=== PATIENT | female | born 1985 | race Caucasian/White ===

== ENCOUNTER 2024-11-14 23:13 | Emergency (ER) | payer OTHER, SELFPAY ==
[2024-11-14 23:18] VITALS: BP 135/80; PULSE 109; RESP 18; TEMP 37.1; O2SAT 97; BMI 48.5
--- NOTE | 2024-11-15 00:16 | ED_ITS ---
HPI - General Adult General Chief complaint: General Medical Stated complaint: pain right side of face Time Seen by Provider: 11/15/24 00:16 Source: patient Mode of arrival: ambulatory Limitations: no limitations History of Present Illness ED Provider: HPI narrative: Patient with cold symptoms for last 1 week now complaining of pain right maxillary sinus area for last 1 week with purulent nasal no fever no chills no shortness a breath no cough Related Data Previous Rx's ?Medication ?Instructions ?Recorded amoxicillin 875 mg-potassium 1 tab PO BID #20 tabs 11/15/24 clavulanate 125 mg tablet ibuprofen 600 mg tablet 600 mg PO Q6H PRN fever or pain 11/15/24 #30 tabs Allergies Allergy/AdvReac Type Severity Reaction Status Date / Time No Known Allergies Allergy Unverified 11/14/24 23:20 Review of Systems Review of Systems: Yes all other systems are reviewed and are negative PMFSH Social History Social History Advance Directives: No Physical Exam ED Vital Signs: Vital Signs - 24 hr 11/14/24 23:18 11/15/24 00:32 Temperature 98.7 F 98.7 F Pulse Rate 109 H 109 H Respiratory Rate 18 18 Blood Pressure 135/80 135/80 Pulse Oximetry 97 97 Oxygen Delivery Method Room Air Room Air BMI result Body Mass Index 48.5 Appearance: Alert. Oriented X3. No acute distress. Eyes: No pallor or icterus ENT: Pharynx normal. Oral Mucosa moist intact tympanic membrane right maxillary sinus tenderness purulent nasal discharge Neck: Normal inspection. Neck supple. CVS: Normal heart rate and rhythm. Pulses normal. Respiratory: No respiratory distress. Equal air entry bilateral, no wheezing/rales/rhonchi Abdomen: Soft and nontender. Bowel sounds are present, Skin: Skin warm and dry. Normal skin color. Normal skin turgor. Extremities: No lower extremity edema. No calf tenderness Neuro: Oriented X 3. No motor deficit. Medications Administered Discontinued Medications Generic Name Dose Route Start Last Admin Trade Name Freq PRN Reason Stop Dose Admin Amoxicillin/Clavulanate Potassium 875 mg 11/15/24 00:17 11/15/24 00:28 Amoxicillin/Potassium Clav 875 Mg Tablet PO 11/15/24 00:18 875 mg ONCE ONE Administration Oxycodone HCl 10 mg 11/15/24 00:17 11/15/24 00:29 Oxycodone Hcl Immed Release 5 Mg Tablet PO 11/15/24 00:18 Not Given ONCE ONE Medical Decision Making Medical Decision Making [facility] Narrative: Patient with right maxillary sinusitis will discharge patient home on Augmentin Discharge Plan Discharge Clinical Impression: Sinusitis Patient Disposition: Home, Self-Care Instructions: Sinusitis (ED) Additional Instructions: Take antibiotics as prescribed Ibuprofen for pain Humidified air Follow with your PCP if not better Prescriptions: New ibuprofen 600 mg tablet 600 mg PO Q6H PRN (Reason: fever or pain) Qty: 30 0RF amoxicillin-pot clavulanate 875-125 mg tablet 1 tab PO BID Qty: 20 0RF Interventions: ED Discharge Assessment Last Done: 11/15/24 00:32 Discharge Date/Time: 11/15/24 00:33 Print Language: Slovak
[2024-11-15] MEDS: Amoxicillin/Potassium Clav 875 MG TABLET PO (00:28)
[2024-11-15 00:32] VITALS: BP 135/80; PULSE 109; RESP 18; TEMP 37.1; O2SAT 97
== END 2024-11-15 00:33 | disposition home or self-care (01) ==
PROVIDERS: Emergency Provider Internal Medicine
DX: J32.0 Chronic maxillary sinusitis (principal); R51.9 Headache, unspecified
CPT/HCPCS: 99282; 99283

== ENCOUNTER 2025-07-13 13:27 | Outpatient (AMB) | payer OTHER, SELFPAY ==
[2025-07-13 13:29] VITALS: BP 114/92; PULSE 92; TEMP 36.3; O2SAT 98; BMI 48.5
--- NOTE | 2025-07-13 13:29 | A.OFFPC_ITS ---
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 Required: No Accompanied by: Self / Same As Patient Allergies No Known Allergies Allergy (Verified 07/13/25 13:50) Medication List - Last Reconciled 07/13/25 by Melanie Dasilva PA-C clonazepam 1 mg PO BID PRN sertraline 50 mg PO DAILY Tobacco use date assessed: 07/13/25 Dental Screening Dental Screen Date: 07/13/25 Did you have a dental visit in the last 12 months?: Yes Did you have a dental problem in the last 6 months where you did not have access to dental care?: No Was dental information given to patient?: Patient has dentist HPI Upfitter Establish care 2 HPI0 Details 39-year-old female coming to the office for the 1st time. Presenting for a wellness visit and management of chronic conditions. Currently managed with sertraline and clonazepam, prescribed by a psychiatrist. The patient finds the treatment beneficial and uses clonazepam daily and as needed. The patient smokes cigarettes and has attempted cessation by reducing intake independently. She has not used pharmacological aids due to concerns about side effects. Mild childhood asthma, primarily exercise-induced, with no recent exacerbations. A back mass was identified, initially thought to be a lipoma. A surgical referral was made but not pursued due to the pandemic. Possible sleep apnea symptoms include nighttime gasping and headaches, prompting a sleep study recommendation. Migraine headache Occur a couple of times weekly, sometimes with visual disturbances. Sumatriptan prescribed for acute episodes. She currently follows with [facility]. [facility] Surgical History H/O section Hx of cholecystectomy S/P tonsillectomy Family History Maternal Grandmother Breast cancer Other Borderline high blood pressure Diabetes Thyroid disease Social History Household Members: Children Both parents involved: Yes Caregiver staying overnight: No Housing: Apartment Are you a primary personal care worker to a significant other at home: No Do you presently have visiting nurse or other home services: No Alcohol intake: never Patient Tobacco Use Status: Current everyday Tobacco user Tobacco use type: Cigarette Cigarette Packs Per Day: 1 Cigarettes Per Day: 10 Years Smoked: 22 e-Cigarette/Vaping Use: Never Used service: No Current occupational status: unemployed Hearing needs: No Vision needs: No Female Reproductive History Menstrual Total pregnancies: 1 Questionnaire PHQ-9 Over the last 2 weeks, how often have you been bothered by any of the following problems? 1. Little interest or pleasure in doing things: not at all 2. Feeling down, depressed, or hopeless: not at all 3. Trouble falling or staying asleep, or sleeping too much: several days 4. Feeling tired or having little energy: several days 5. Poor appetite or overeating: not at all 6. Feeling bad about yourself - or that you are a failure or have let yourself or your family down: not at all 7. Trouble concentrating on things, such as reading the newspaper or watching television: not at all 8. Moving or speaking so slowly that other people could have noticed. Or the opposite - being so fidgety or restless that you have been moving around a lot more than usual: not at all 9. Thoughts that you would be better off or of hurting yourself in some way: not at all Total score: 2 Depression Screening Interpretation: Positive Depression Screening Follow-up: Existing condition and In treatment Depression Screening Done: Yes 02794 - PHQ-9 Billing: Yes Source: Developed by Drs. Adam Song, Mayda Kaur, Abhishek Werner and colleagues, with an educational abigail from [employer]. Thrive Questionnaire Date Thrive assessed: 07/13/25 I am a: Patient What is your living situation today?: I have a steady place to live Within the past 12 months, did the food you bought not last and you didn't have the money to get more?: Never true Within the past 12 months, did you worry whether your food would run out before you got money to buy more?: Never true Do you have trouble paying for medicines?: No Do you have trouble getting transportation to medical appointments?: No Do you have trouble paying your heating and electricity bill?: No Do you have trouble taking care of your child, family member or friend?: No Do you have trouble with day-to-day activities such as bathing, preparing meals, shopping, managing finances, etc.?: No Are you currently unemployed and looking for a job?: No Are you interested in more education?: No Please select the resources that you would like help with: None Currently or been in a relationship where the following occur: No concerns reported THRIVE Score: 0 AUDIT C Alcohol Use Questionnaire (AUDIT-C) 1. How often do you have a drink containing alcohol?: Monthly or less 2. How many drinks containing alcohol do you have on a typical day when you are drinking?: 1 or 2 3. How often do you have six or more drinks on one occasion?: Never Total Score: 1 Score Reviewed/Action Taken: Yes PAULINA-7 AMB Questionnaire PAULINA-7 Date PAULINA - 7 assessed: 07/13/25 Feeling nervous, anxious, or on edge: 1 = Several days Not being able to stop or control worryin = Not at all Worrying too much about different things: 1 = Several days Trouble relaxin = Several days Being so restless that it is hard to sit still: 0 = Not at all Becoming easily annoyed or irritable: 0 = Not at all Feeling afraid as if something awful might happen: 1 = Several days Total PAULINA-7 score (0-4 normal; 5-9 mild; 10-14 moderate; 15-21 severe): 4 Source: Developed by Drs. Adam Song, Mayda Kaur, Abhishek Werner and colleagues, with an educational abigail from [employer]. PAULINA-7 Assessment Billing PAULINA-7 Assessment Tool: PAULINA-7 Assessment 94105 Review of Systems Const Denies body aches, Denies chills, Denies fever(s), Reports headache(s) and Denies poor appetite Eyes Reports no additional complaints and Reports requires corrective lenses ENT Denies dysphagia, Denies dizziness, Reports headache(s) and Denies odynophagia Card Denies chest pain, Denies edema, Denies lightheadedness and Denies dyspnea Resp Denies cough and Denies dyspnea GI Denies abdominal pain, Denies dysphagia, Denies nausea, Denies odynophagia and Denies vomiting Reports no additional complaints Musc Reports no additional complaints and Denies abnormal gait Skin/Breast Reports system reviewed and no additional complaints, except as documented Neuro Denies abnormal gait, Denies dizziness and Reports headache(s) Psych Reports no additional complaints Physical exam (Primary Care) Vital Signs: Last Vital Signs Temp 97.3 F 07/13/25 13:29 Pulse 92 07/13/25 13:29 BP 134/86 07/13/25 14:02 Pulse Ox 98 07/13/25 13:29 BMI result Body Mass Index 48.5 BMI Assessment/Plan discussion: High BMI High, discussed plan: lifestyle, dietary and physical activity Tobacco/Smoking Status: Tobacco use Status Tobacco use date assessed 07/13/25 07/13/25 13:37 Patient Tobacco Use Status Current everyday Tobacco 07/13/25 13:38 Tobacco use type Cigarette 07/13/25 13:37 e-Cigarette/Vaping Use Never Used 07/13/25 13:37 Are you ready to quit: Yes Tobacco cessation counseling provided: Yes Items discussed: Nicotine replacement Relapse Prevention: weight gain after smoking is common and discussed dietary, exercise and/or lifestyle changes CPT code: Less than 3 minutes PHQ-9: PHQ-9 Score PHQ-9: Total score 2 07/13/25 17:06 Depression Screening Interpretation: Positive Depression Screening Follow-up: Existing condition and In treatment Thrive Assessment: Date of Thrive Assessment Date Thrive assessed 07/13/25 07/13/25 13:40 Currently or been in a relationship where the following occur: No concerns reported Const General: cooperative, healthy appearing, comfortable and no acute distress Orientation/consciousness: patient oriented x3 [facility] Head: Yes normocephalic Ears: hearing grossly normal bilaterally General nose exam: Normal external nose present Eyes General: appearance normal, both eyes and all related structures Conjunctivae: conjunctivae normal Neck Neck: Yes full ROM and Yes no lymphadenopathy Resp Effort & Inspection: normal respiratory effort Auscultation: clear to auscultation bilaterally, no crackles, no rales, no rhonchi and no wheezes Cardio Rate: regular rate Rhythm: regular rhythm Back/Spine/Pelvis Back/spine/pelvis image: 2 1. non tender soft tissue mass with smooth edges Skin General skin exam: no rashes or lesions noted Neuro General: patient oriented x3 Gait exam (Neuro): Normal gait present Extrem General: Yes normal to inspection, Yes full ROM and No edema Psych Affect: normal affect Attitude: cooperative Insight: Good insight present (Psych) Judgement: Good judgement present (Psych) Coding Level of Care Code Est Pt Level 4 (14526) Diagnoses Anxiety F41.9 Tobacco use Z72.0 Lipoma D17.9 Hypersomnolence G47.10 Migraine G43.909 Additional Codes PAULINA-7 Assessment Billing - PAULINA-7 Assessment Tool: PAULINA-7 Assessment 58841 ([id number]) PHQ-9 - 65139 - PHQ-9 Billing: Yes ([id number]) Assessment & Plan Assessment & Plan (1) Anxiety: Comment: [facility] counseling and medication management Code(s): F41.9 - Anxiety disorder, unspecified Category: Medical Plan: Patient is currently following with [facility] and finds her medications beneficial (2) Tobacco use: Code(s): Z72.0 - Tobacco use Category: Social Hx Plan: Smoking cigarettes and the use of tobacco can be harmful. We discussed the importance of stopping and options to aid in smoking cessation. Plan to trial nicotine gum as needed (3) Lipoma: Code(s): D17.9 - Benign lipomatous neoplasm, unspecified Category: Medical Plan: For lipoma a referral to General surgery is made today. (4) Hypersomnolence: Code(s): G47.10 - Hypersomnia, unspecified Category: Medical Plan: For hypersomnolence and nighttime shortness of breath plan to obtain home sleep study for further evaluation. (5) Migraine: Code(s): G43.909 - Migraine, unspecified, not intractable, without status migrainosus Category: Medical Plan: For migraine headaches plan to trial sumatriptan to be used as needed. Plan During the visit, we discussed the management of anxiety with current medications, including sertraline and clonazepam. We explored smoking cessation options, focusing on nicotine replacement therapies with minimal side effects. The patient was informed about the importance of managing hypertension through lifestyle changes, such as smoking cessation and weight management. We also addressed the suspected sleep apnea and recommended a home sleep study. For migraine management, sumatriptan was prescribed to be used at the onset of symptoms. Preventative care measures, including mammogram and pap smear screenings, were discussed, with referrals planned for further evaluation. This note was constructed using voice recognition software. While every effort has been made to ensure accuracy and certified orthotist practice manager, still areas may have been included sometimes these areas may affect the content or meeting of the given symptoms. Total time spent caring for the patient today was 30 minutes. This includes time spent before the visit reviewing the chart, time spent during the visit, and time spent after the visit and documentation. Patient was informed and verbally consented to the use of an ambient scribe for clinic note documentation during this visit. Orders: Orders 2 RT home sleep study 07/13/25 G43.909 - Migraine, unspecified, not intractable, without status migrainosus, G47.10 - Hypersomnia, unspecified Complete Blood Count Auto Diff 07/13/25 G43.909 - Migraine, unspecified, not intractable, without status migrainosus, Z00.00 - Encounter for general adult medical examination without abnormal findings Comprehensive Met. Panel 07/13/25 G43.909 - Migraine, unspecified, not intractable, without status migrainosus, Z00.00 - Encounter for general adult medical examination without abnormal findings Vitamin D 25-OH Total 07/13/25 G43.909 - Migraine, unspecified, not intractable, without status migrainosus, Z13.21 - Encounter for screening for nutritional disorder TSH reflex Free T4 07/13/25 G43.909 - Migraine, unspecified, not intractable, without status migrainosus, Z13.29 - Encounter for screening for other suspected endocrine disorder Vitamin B12 and Folate 07/13/25 G43.909 - Migraine, unspecified, not intractable, without status migrainosus, Z13.21 - Encounter for screening for nutritional disorder Lipid Panel 07/13/25 Z13.220 - Encounter for screening for lipoid disorders Referrals 2 MICRO LAB ANALYST Referral Z12.4 - Encounter for screening for malignant neoplasm of cervix General Surgery Referral D17.9 - Benign lipomatous neoplasm, unspecified Medications: New 2 sumatriptan succinate take 1 tab at onset of headache; if no relief may repeat 1 tab after at least 2 hrs; max = 4 tabs/24 hr PO 30 tabs 0RF nicotine (polacrilex) 2 mg buccal Q2H 40 ea 0RF Discontinued 2 amoxicillin-pot clavulanate 875-125 mg Discontinued Reason: Patient no longer taking 1 tab PO BID 20 tabs 0RF ibuprofen Discontinued Reason: Patient no longer taking 600 mg PO Q6H PRN 30 tabs 0RF fever or pain
[2025-07-13 14:02] VITALS: BP 134/86
== END 2025-07-13 14:11 | disposition home or self-care (01) ==
LOC: HO.HMCH 13:27
DX: F41.9 Anxiety disorder, unspecified (principal); Z72.0 Tobacco use; D17.9 Benign lipomatous neoplasm, unspecified; G47.10 Hypersomnia, unspecified; G43.909 Migraine, unspecified, not intractable, without status migrainosus

== ENCOUNTER → 2025-07-13 13:27 | Outpatient (BNVA) | payer OTHER, SELFPAY | DX: G43.909 Migraine, unspecified, not intractable, without status migrainosus (principal); F17.210 Nicotine dependence, cigarettes, uncomplicated; F41.9 Anxiety disorder, unspecified; D17.9 Benign lipomatous neoplasm, unspecified; G47.10 Hypersomnia, unspecified | CPT/HCPCS: 96127; 99212 ==

== ENCOUNTER 2025-08-20 11:22 | Outpatient (AMB) | payer OTHER, SELFPAY ==
--- NOTE | 2025-08-20 11:23 | A.OFFVIS_ITS ---
Vital Signs 3 08/20/25 11:33 Height 5 ft 3 in Weight 275 lb BMI 48.7 BP 166/82 H Blood Pressure Location Lt brachial Position Sitting Pulse 74 Intake Visit Reasons: lipoma on back Intake Note: Patient is seen in office for evaluation of a lipoma of the back. Pt c/o: onset 3 yrs, denies increase/decrease, discharge, redness or swelling, no prior once in the past Skin Specialist Required: No Accompanied by: Family/Other Allergies No Known Allergies Allergy (Verified 08/20/25 11:32) Medication List - Last Reconciled 08/20/25 by Kenneth Dykes MD clonazepam 1 mg PO BID PRN nicotine (polacrilex) 2 mg buccal Q2H sertraline 50 mg PO DAILY sumatriptan succinate take 1 tab at onset of headache; if no relief may repeat 1 tab after at least 2 hrs; max = 4 tabs/24 hr PO HPI Comments Details: 40-year-old female patient presenting for evaluation of a soft tissue mass located in the midback. She reports 1st noted the lump approximately 3 years ago when her boyfriend was giving her a massage. She does not normally feel any pain associated with the lesion however when the lesion is palpated she does note some discomfort. She denies a history of trauma or surgery in this location. Lump has not changed significantly in size since 1st being noted. She reports an ultrasound of the lesion which was felt to be most likely a lipoma. She presents today to discuss possible removal of this lesion. [facility] Surgical History H/O section Hx of cholecystectomy S/P tonsillectomy Family History Maternal Grandmother Breast cancer Other Borderline high blood pressure Diabetes Thyroid disease Social History Household Members: Children Both parents involved: Yes Caregiver staying overnight: No Housing: Apartment Are you a primary healthcare translator to a significant other at home: No Do you presently have visiting nurse or other home services: No Alcohol intake: never Patient Tobacco Use Status: Current everyday Tobacco user Tobacco use type: Cigarette Cigarette Packs Per Day: 1 Cigarettes Per Day: 10 Years Smoked: 22 e-Cigarette/Vaping Use: Never Used service: No Current occupational status: unemployed Hearing needs: No Vision needs: No Review of Systems Const All systems reviewed & are unremarkable except as noted in HPI and below Physical Exam Vital Signs: Last Vital Signs Pulse 74 08/20/25 11:33 BP 166/82 H 08/20/25 11:33 BMI result Body Mass Index 48.7 Const General: cooperative and no acute distress Nutritional Appearance: well nourished Orientation/consciousness: patient oriented x3 Limitations: no limitations HEENT Head: Yes normocephalic and Yes atraumatic Ears: hearing grossly normal bilaterally Resp Effort & Inspection: normal respiratory effort, no audible wheezes, no cough and no respiratory distress GI Inspection: Yes normal to inspection Back/Spine/Pelvis Other: 5 cm soft tissue mass located to the left of midline at approximately the bra line, mobile within the subcutaneous tissue and most consistent with a lipoma. No overlying skin changes are appreciated. Back/spine/pelvis image: 2 1. 5 cm soft tissue mass consistent with a lipoma to the left of midline upper midback Skin Other: Warm, dry, no rash Neuro General: patient oriented x3 Extrem General: Yes no clubbing, cyanosis or edema Assessment & Plan Assessment & Plan (1) Lipoma: Code(s): D17.9 - Benign lipomatous neoplasm, unspecified Category: Medical Plan 40-year-old female patient presenting with a soft tissue mass of the left back which has been present for a least 3 years without any significant change. I reviewed the procedure to remove the palpable lump and after discussion of the procedure, risks and alternatives, she decided to hold off on any surgery. She is welcome to call should she decide to have the lipoma removed. Coding Level of Care Code New Pt Level 4 (35281) Diagnoses Lipoma D17.9
[2025-08-20 11:33] VITALS: BP 166/82; PULSE 74; BMI 48.7
== END 2025-08-20 11:50 | disposition home or self-care (01) ==
LOC: HO.HGS 11:23
PROVIDERS: Visit Provider Surgery
DX: D17.9 Benign lipomatous neoplasm, unspecified (principal)
CPT/HCPCS: 99204

== ENCOUNTER → 2025-08-20 11:22 | Outpatient (BNVA) | payer OTHER, SELFPAY | PROVIDERS: Visit Provider Surgery | DX: D17.9 Benign lipomatous neoplasm, unspecified (principal) | CPT/HCPCS: 99202 ==

== ENCOUNTER 2025-10-01 07:40 | Outpatient (REF) | payer OTHER, SELFPAY ==
[2025-10-01 10:15] LABS: MANUAL DIFF FLAG NO
[2025-10-01 10:31] LABS: Hematocrit 42.3 % (37.0-47.0); Hemoglobin 14.2 g/dl (12.0-16.0); Imm Gran Abs Auto 0.02 X10*3/uL (0.00-0.03); Imm Gran Pct Auto 0.3 % (0.0-0.4); Lymphocytes Absolute Auto 1.8 X10*3/uL (1.2-4.9); Mean Corpuscular HGB Conc 33.6 g/dl (31.0-35.0); Mean Corpuscular Hemoglobin 32.1 pg (27.0-33.0); Mean Corpuscular Volume 95.5 fL (80.0-98.0); NRBC Abs Auto 0.000 X10*3/uL (0.0-0.012); NRBC Pct Auto 0.0 /100WBC (0.0-0.2); Platelet Count 185 X10*3/uL (160-400); Red Blood Count 4.43 X10*6/uL (4.20-5.50); White Blood Count 7.4 X10*3/uL (4.8-10.8)
[2025-10-01 10:54] LABS: Alanine Aminotransferase 29 U/L (0-31); Albumin Level 4.4 g/dL (3.5-5.0); Alkaline Phosphatase 70 U/L (39-117); Anion Gap 13 (12-20); Aspartate Amino Transferase 30 U/L (5-31); Blood Urea Nitrogen 16 mg/dL (9-16); Calcium 9.5 mg/dL (8.4-10.2); Carbon Dioxide 22 mmol/L (22-29); Chloride 105 mmol/L (96-108); Cholesterol 190 mg/dL (<200); Estimated Glomerular Filt Rate > 60; HDL Cholesterol 56 mg/dL (>40); Potassium 4.5 mmol/L (3.3-5.1); Sodium 135 mmol/L (135-145); Total Protein 7.1 g/dL (6.5-8.0); Triglycerides 135 mg/dL (<150)
[2025-10-01 11:19] LABS: Folate 9.4 ng/mL (> or = 4.0); Vitamin B12 196 pg/mL (200-900)
== END 2025-10-01 07:41 | disposition home or self-care (01) ==
LOC: HO.HMGCLDS 07:40
DX: Z00.00 Encounter for general adult medical examination without abnormal findings (principal); Z13.220 Encounter for screening for lipoid disorders; Z13.21 Encounter for screening for nutritional disorder; Z13.29 Encounter for screening for other suspected endocrine disorder; G43.909 Migraine, unspecified, not intractable, without status migrainosus
CPT/HCPCS: 36415; 80053; 80061; 82306; 82607; 82746; 84443; 85025

== ENCOUNTER → 2025-10-01 09:50 | Outpatient (REF) | payer OTHER, SELFPAY | LOC: HO.SL 09:50 | DX: G43.909 Migraine, unspecified, not intractable, without status migrainosus (principal); G47.10 Hypersomnia, unspecified | CPT/HCPCS: 95806 ==

== ENCOUNTER → 2025-10-01 09:58 | Outpatient (BNV) | payer OTHER, SELFPAY | PROVIDERS: Visit Provider Psychiatry & Neurology Neurology | DX: G47.10 Hypersomnia, unspecified (principal) | CPT/HCPCS: 95806 ==

== ENCOUNTER 2025-10-15 09:58 | Outpatient (AMB) | payer OTHER, SELFPAY ==
[2025-10-15 10:06] VITALS: BP 130/88; PULSE 74; O2SAT 97; BMI 48.5
--- NOTE | 2025-10-15 10:06 | A.OFFPC_ITS ---
Vital Signs 10/15/25 10:06 Height 5 ft 3 in Weight 274 lb BMI 48.5 BP 130/88 Blood Pressure Location Lt brachial Position Sitting Pulse 74 Pulse Source Pulse Oximeter Pulse Oximetry (%) 97 Oxygen Delivery Method Room Air Intake Visit Reasons: PE Allergies No Known Allergies Allergy (Verified 10/15/25 10:18) Medication List - Last Reconciled 10/15/25 by Melanie Dasilva PA-C cholecalciferol (vitamin D3) 25 mcg PO DAILY clonazepam 1 mg PO BID PRN mecobalamin (vitamin B12) 1,000 mcg PO DAILY nicotine (polacrilex) 2 mg buccal Q2H sertraline 50 mg PO DAILY sumatriptan succinate take 1 tab at onset of headache; if no relief may repeat 1 tab after at least 2 hrs; max = 4 tabs/24 hr PO Tobacco use date assessed: 10/15/25 Dental Screening Dental Screen Date: 07/13/25 HPI PE HPI Details 40-year-old female with past medical his tory of tobacco use, anxiety, migraine last seen 07/09 coming in for annual exam. The patient follows with a therapist every 2-3 weeks and a medication provider every 3 months for anxiety. The patient reports severe social anxiety with a history of panic attacks, which has previously prevented participation in jury duty. The patient was evaluated by a general surgeon for a lipoma, who advised that removal is not necessary at this time as it is not bothersome, with instructions to return if it grows or becomes painful. She reports severe dry, cracking skin on the hands that has not improved with various [id number] moisturizers. mammo: due next year eye doctor: [facility] yearly pap smear: appt 01/2026 vaccines: TDaP given today PFSH Surgical History H/O section Hx of cholecystectomy S/P tonsillectomy Family History Maternal Grandmother Breast cancer Other Borderline high blood pressure Diabetes Thyroid disease Social History Household Members: Children Both parents involved: Yes Caregiver staying overnight: No Housing: Apartment Are you a primary continuum of care manager to a significant other at home: No Do you presently have visiting nurse or other home services: No Alcohol intake: never Patient Tobacco Use Status: Current everyday Tobacco user Tobacco use type: Cigarette Cigarette Packs Per Day: 1 Cigarettes Per Day: 5 Years Smoked: 22 e-Cigarette/Vaping Use: Never Used Second Hand Smoke Exposure: Yes service: No Current occupational status: unemployed Hearing needs: No Vision needs: No Questionnaire PHQ-9 Over the last 2 weeks, how often have you been bothered by any of the following problems? 1. Little interest or pleasure in doing things: not at all 2. Feeling down, depressed, or hopeless: not at all 3. Trouble falling or staying asleep, or sleeping too much: several days 4. Feeling tired or having little energy: several days 5. Poor appetite or overeating: not at all 6. Feeling bad about yourself - or that you are a failure or have let yourself or your family down: not at all 7. Trouble concentrating on things, such as reading the newspaper or watching television: not at all 8. Moving or speaking so slowly that other people could have noticed. Or the opposite - being so fidgety or restless that you have been moving around a lot more than usual: not at all 9. Thoughts that you would be better off or of hurting yourself in some way: not at all Total score: 2 Depression Screening Interpretation: Positive Depression Screening Follow-up: Existing condition and In treatment Depression Screening Done: Yes Source: Developed by Drs. Aadm Song, Mayda Kaur, Abhishek Werner and colleagues, with an educational abigail from [employer]. Thrive Questionnaire Date Thrive assessed: 07/11/25 I am a: Patient What is your living situation today?: I have a steady place to live Within the past 12 months, did the food you bought not last and you didn't have the money to get more?: Never true Within the past 12 months, did you worry whether your food would run out before you got money to buy more?: Never true Do you have trouble paying for medicines?: No Do you have trouble getting transportation to medical appointments?: No Do you have trouble paying your heating and electricity bill?: No Do you have trouble taking care of your child, family member or friend?: No Do you have trouble with day-to-day activities such as bathing, preparing meals, shopping, managing finances, etc.?: No Are you currently unemployed and looking for a job?: No Are you interested in more education?: No Please select the resources that you would like help with: None Currently or been in a relationship where the following occur: No concerns reported THRIVE Score: 0 PAULINA-7 AMB Questionnaire PAULINA-7 Date PAULINA - 7 assessed: 07/13/25 Source: Developed by Drs. Adam Song, Mayda Kaur, Abhishek Werner and colleagues, with an educational abigail from [employer]. Review of Systems Const Denies body aches, Denies fatigue, Denies fever(s), Denies frequent falls, Denies headache(s) and Denies weakness Eyes Reports no additional complaints and Denies change in vision ENT Denies dysphagia, Denies dizziness, Denies headache(s), Denies nasal congestion and Denies odynophagia Card Denies chest pain, Denies syncope, Denies irregular heart rhythm, Denies leg edema, Denies lightheadedness and Denies dyspnea Resp Denies cough and Denies dyspnea GI Denies abdominal pain, Denies constipation, Denies dysphagia, Denies dyspepsia, Denies diarrhea, Denies nausea, Denies odynophagia and Denies vomiting Denies urinary frequency, Denies dysuria, Denies urinary hesitancy and Denies urinary urgency Musc Denies back pain and Denies myalgias Skin/Breast Reports system reviewed and no additional complaints, except as documented Neuro Denies dizziness, Denies syncope, Denies frequent falls, Denies headache(s) and Denies weakness Psych Reports no additional complaints Endo Denies fatigue Physical exam (Primary Care) Vital Signs: Last Vital Signs Pulse 74 10/15/25 10:06 BP 130/88 10/15/25 10:06 Pulse Ox 97 10/15/25 10:06 Oxygen Delivery Method Room Air 10/15/25 10:06 BMI result Body Mass Index 48.5 Tobacco/Smoking Status: Tobacco use Status Tobacco use date assessed 10/15/25 10/15/25 10:10 Patient Tobacco Use Status Current everyday Tobacco 10/15/25 10:10 Tobacco use type Cigarette 10/15/25 10:10 e-Cigarette/Vaping Use Never Used 10/15/25 10:10 PHQ-9: PHQ-9 Score PHQ-9: Total score 2 10/15/25 10:19 Depression Screening Interpretation: Positive Depression Screening Follow-up: Existing condition and In treatment Thrive Assessment: Date of Thrive Assessment Date Thrive assessed 07/11/25 10/15/25 10:10 Currently or been in a relationship where the following occur: No concerns reported Const General: cooperative, healthy appearing, comfortable and no acute distress Orientation/consciousness: patient oriented x3 HENMT Head: Yes normocephalic Ears: hearing grossly normal bilaterally, external ears normal, TM's normal bilaterally and EAC's normal General nose exam: Normal external nose present Face and sinus: Yes normal facial exam and Yes sinuses nontender Mouth: Normal oral and palatal mucosa present and tongue normal Throat: Yes posterior oropharynx normal Eyes General: appearance normal, both eyes and all related structures Conjunctivae: conjunctivae normal Pupils: Equal, round and reactive pupils present EOM: EOMs intact bilaterally and No Nystagmus present Neck Neck: Yes normal visual inspection, Yes full ROM and Yes no lymphadenopathy Chest Chest palpation & inspection: normal inspection of the chest Resp Effort & Inspection: normal respiratory effort Auscultation: clear to auscultation bilaterally, no crackles, no rales, no rhonchi, no wheezes and breath sounds present Cardio Rate: regular rate Rhythm: regular rhythm Peripheral pulses: radial pulses present and dorsalis pedis present GI Inspection: Yes normal to inspection and No Abdominal wall edema Palpation (GI): Soft to palpation, not firm and nontender Auscultation: normal bowel sounds Rectal Exam - Female: deferred General: Yes no CVA tenderness Back/Spine/Pelvis Back: no CVA tenderness Skin General skin exam: no rashes or lesions noted Neuro General: patient oriented x3 Cranial nerves: Yes Equal, round and reactive pupils present, Yes Midline tongue present, Yes Ability to bilaterally elevate shoulders present and No Nystagmus present Gait exam (Neuro): Normal gait present Extrem General: Yes normal to inspection, Yes full ROM, No no pedal edema and No edema Psych Speech and movement: Normal speech and movement present Affect: normal affect Insight: Good insight present (Psych) Judgement: Good judgement present (Psych) Immunizations Boostrix Tdap 2.5 Lf unit-8 mcg-5 Lf/0.5 mL intramuscular syringe Performing Provider: Melanie Dasilva PA-C Performing Location: [facility] [place] [facility] Administered by: Alise Park LPN on 10/15/25 10:42 Dose Route Admin Location Dispensed Lot Number Expiration Date 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 0.5 mL IM Right Deltoid 0.5 mL [id number] 04/30/28 38795-559-90 [place] Total Dispensed Waste 0.5 mL 0 % VIS Given Date VIS Provided VIS Publication Date 10/15/25 Single Vaccine 21 Eligibility Eligibility Date Funding Source Not [facility] Eligible 10/15/25 Private Coding Level of Care Code Est Pt Prev Care [id number]) Diagnoses Annual physical exam Z00.00 Anxiety F41.9 Tobacco use Z72.0 Migraine G43.909 B12 deficiency E53.8 Vitamin D deficiency E55.9 Eczema L30.9 Assessment & Plan Assessment & Plan (1) Annual physical exam: Code(s): Z00.00 - Encounter for general adult medical examination without abnormal findings Category: Medical Plan: Patient is up-to-date on all recommended routine screenings and vaccinations for her age. Blood work is up-to-date and has been reviewed with the patient today. Tetanus vaccine was given today. Plan to follow up in 6 months or sooner as needed (2) Anxiety: Comment: [facility] counseling and medication management Code(s): F41.9 - Anxiety disorder, unspecified Category: Medical Plan: Patient is currently following with [facility] and finds her medications beneficial (3) Tobacco use: Code(s): Z72.0 - Tobacco use Category: Social Hx Plan: Smoking cigarettes and the use of tobacco can be harmful. We discussed the importance of stopping and options to aid in smoking cessation. Plan to trial nicotine gum as needed (4) Migraine: Code(s): G43.909 - Migraine, unspecified, not intractable, without status migrainosus Category: Medical Plan: For migraine headaches plan to trial sumatriptan to be used as needed. (5) B12 deficiency: Code(s): E53.8 - Deficiency of other specified B group vitamins Category: Medical Plan: Continue on B12 supplementation (6) Vitamin D deficiency: Code(s): E55.9 - Vitamin D deficiency, unspecified Category: Medical Plan: Recently started on vitamin-D supplementation. (7) Eczema: Code(s): L30.9 - Dermatitis, unspecified Category: Medical Plan: The patient has severe dry, cracking skin on the hands consistent with eczema. A topical steroid cream was prescribed to use as needed for inflammation, for no more than 14 consecutive days. Advised to continue consistent use of thick moisturizers like Eucerin or Aquaphor, especially after hand washing. Plan This note was constructed using voice recognition software. While every effort has been made to ensure accuracy and [employer] systems administrator, still areas may have been included sometimes these areas may affect the content or meeting of the given symptoms. Total time spent caring for the patient today was 30 minutes. This includes time spent before the visit reviewing the chart, time spent during the visit, and time spent after the visit and documentation. Patient was informed and verbally consented to the use of an ambient scribe for clinic note documentation during this visit. Orders: Orders TDaP Immunization Today Z23 - Encounter for immunization Medications: New triamcinolone acetonide 0.1% 1 appl topical DAILY 60 mL 0RF Refilled nicotine (polacrilex) 2 mg buccal Q2H 40 ea 0RF
== END 2025-10-15 10:45 | disposition home or self-care (01) ==
LOC: HO.HMCH 09:59
DX: Z00.00 Encounter for general adult medical examination without abnormal findings (principal); F41.9 Anxiety disorder, unspecified; Z72.0 Tobacco use; G43.909 Migraine, unspecified, not intractable, without status migrainosus; E53.8 Deficiency of other specified B group vitamins; E55.9 Vitamin D deficiency, unspecified; L30.9 Dermatitis, unspecified; Z23 Encounter for immunization

== ENCOUNTER → 2025-10-15 09:58 | Outpatient (BNVA) | payer OTHER, SELFPAY | DX: Z00.00 Encounter for general adult medical examination without abnormal findings (principal); F41.9 Anxiety disorder, unspecified; F41.0 Panic disorder [episodic paroxysmal anxiety]; G43.909 Migraine, unspecified, not intractable, without status migrainosus; E53.8 Deficiency of other specified B group vitamins; E55.9 Vitamin D deficiency, unspecified; L30.9 Dermatitis, unspecified; F17.210 Nicotine dependence, cigarettes, uncomplicated; Z23 Encounter for immunization | CPT/HCPCS: 90471; 90715; 99395 ==